=== PATIENT | female | born 1975 | race Caucasian/White ===

== ENCOUNTER 2021-04-02 05:34 | Outpatient (CLI) | payer MEDICARE, MEDICAID ==
[~2021-04-02] VITALS: Ht 162.6 cm; Wt 86.7 kg
[~2021-04-02 05:34] MED LIST: ALBU17AE23; CITA-105; DICL50TA3; DOCU-165; HYDR1CAP2; LORA1TAB PO; SUMA1TAB; TRAZ50TA67 PO; YAZ
[2021-04-02] MEDS ORDERED: FLT11013 IH (14:43)
[2021-04-02] MEDS ORDERED: UBRO100T PO (14:43)
[2021-04-02] MEDS ORDERED: EREN70AU SQ (14:43)
[2021-04-02] MEDS ORDERED: VENL225T PO (14:43)
[2021-04-02] MEDS ORDERED: ATOR10TA66 PO (14:43)
[2021-04-02] MEDS ORDERED: PROM25TA14 PO (14:43)
[2021-04-02] MEDS ORDERED: ALBU0.63 IH (14:43)
[2021-04-02] MEDS ORDERED: TRZ50T PO (14:43)
[2021-04-02] MEDS ORDERED: BUSP30TA2 PO (14:43)
[2021-04-02] MEDS ORDERED: PRAZ5CAP2 PO (14:43)
[2021-04-02] MEDS ORDERED: LISI10TA25 PO (14:43)
[2021-04-02] MEDS ORDERED: MIRT7.5T8 PO (14:43)
[2021-04-09] MEDS ORDERED: TRAM50TA3 PO ×2 (10:05→10:16)
== END 2021-04-08 09:02 | disposition home or self-care (01) ==
LOC: PREOP 05:34
PROVIDERS: ATTEND Otolaryngology Otolaryngology/Facial Plastic Surgery
DX: Z01.818 Encounter for other preprocedural examination (principal); J34.3 Hypertrophy of nasal turbinates

== ENCOUNTER 2021-04-09 07:04 | Day surgery (SDC) | payer MEDICARE, MEDICAID ==
[2021-04-09] VITALS (11 sets, daily range): BP systolic 91–117; BP diastolic 45–96
[~2021-04-09] VITALS: Ht 162.6 cm; Wt 86.7 kg
[~2021-04-09 07:04] MED LIST changes: +ALBU0.63 IH; +ATOR10TA66 PO; +BUSP30TA2 PO; +EREN70AU SQ; +FLT11013 IH; +LISI10TA25 PO; +MIRT7.5T8 PO; +PRAZ5CAP2 PO; +PROM25TA14 PO; +TRZ50T PO; +UBRO100T PO; +VENL225T PO
[2021-04-09] MEDS ORDERED: LACTATED RINGERS 1,000 ML IV PRN (07:30)
--- NOTE | 2021-04-09 07:43 | Progress Note-Pre Operative ---
Pre-Operative Progress Note H&P Reviewed The H&P was reviewed, patient examined and no changes noted. 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
[2021-04-09] MEDS ORDERED: MIDAZOLAM 2 MG/2 ML (VERSED) VIAL ONE (07:46)
[2021-04-09] MEDS ORDERED: ONDANSETRON 4 MG/2 ML (SDV) Z0FRAN ONE ×2 (07:46→09:03)
[2021-04-09] MEDS ORDERED: proPOfol 200 MG/20 ML (DIPRIVAN) VIAL IV ONE (07:46)
[2021-04-09] MEDS ORDERED: LIDOCAINE PF 2% 5 ML (XYLOCAINE) VIAL ONE (07:46)
[2021-04-09] MEDS ORDERED: ROCURONIUM 10 MG/ML 5 ML SYRINGE IV ONE (07:46)
[2021-04-09] MEDS ORDERED: fentaNYL INJ 100 MCG/2 ML AMP ONE (07:46)
[2021-04-09] MEDS ORDERED: LIDOCAINE/EPI 1%-1:100,000 (XYLOCAINE) 20ML ONE (07:48)
[2021-04-09] MEDS ORDERED: PHENYLEPHRINE 0.5% NASAL SPR (NEO-SYNEPHRINE) REG ONE (07:48)
[2021-04-09] MEDS ORDERED: NEOSTIGMINE 3 MG/3 ML VIAL ONE (08:39)
[2021-04-09] MEDS ORDERED: GLYCOPYRROLATE 0.2 MG/ML (ROBINUL) 2 ML VIAL ONE (08:39)
[2021-04-09] MEDS ORDERED: PHENYLEPHRINE 100 MCG/ML 10 ML (ANESTHESIA) SYR ONE (08:40)
[2021-04-09] MEDS ORDERED: SUGAMMADEX 500 MG/5 ML VIAL (BRIDION) IV ONE (08:44)
--- NOTE | 2021-04-09 08:47 | Progress Note-Post Operative ---
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 Specimen(s) collected/removed none RYANN RICCI MD April 09, 2021 08:47
[2021-04-09] MEDS ORDERED: D5 1/2 NS W/KCL 20 MEQ/L 1,000 ML IV SCH (09:00)
[2021-04-09] MEDS ORDERED: ACETAMINOPHEN 325 MG TABLET PO PRN (09:00)
[2021-04-09] MEDS: morphine INJ 10 MG/ML 1ML (SYR OR VIAL) ONE (09:14)
[2021-04-09] MEDS ORDERED: TRAM50TA3 PO ×2 (10:05→10:16)
--- NOTE | 2021-04-09 12:02 | Anesthesia-General Post-Op ---
General Patient Condition Mental Status/LOC: Same as Preop Cardiovascular: Satisfactory Nausea/Vomiting: Absent Respiratory: Satisfactory Pain: Controlled Complications: Absent Post Op Complications Complications None Follow Up Care/Instructions Patient Instructions None needed. Anesthesia/Patient Condition Patient Condition Patient is doing well, no complaints, stable vital signs, no apparent adverse anesthesia problems. No complications reported per nursing. FERNANDO BLACKWELL CRNA April 09, 2021 12:02
== END 2021-04-09 10:39 | disposition home or self-care (01) ==
LOC: SDC 07:04
PROVIDERS: ATTEND Otolaryngology Otolaryngology/Facial Plastic Surgery
DX: J34.3 Hypertrophy of nasal turbinates (principal); J34.2 Deviated nasal septum; R09.81 Nasal congestion; I10 Essential (primary) hypertension; J45.909 Unspecified asthma, uncomplicated; F32.9 Major depressive disorder, single episode, unspecified; F41.9 Anxiety disorder, unspecified; Z91.02 Food additives allergy status; Z88.1 Allergy status to other antibiotic agents; Z88.5 Allergy status to narcotic agent; Z87.891 Personal history of nicotine dependence; Z91.030 Bee allergy status; Z90.89 Acquired absence of other organs; Z98.890 Other specified postprocedural states
CPT/HCPCS: 87081

== ENCOUNTER 2023-04-13 12:43 | Emergency (ER) | payer MEDICARE, MEDICAID ==
[~2023-04-13 12:43] MED LIST changes: +TRAM50TA3 PO
[2023-04-13] MEDS ORDERED: ONDANSETRON 4 MG (ZOFRAN) ORAL DISSOLVE TAB PO STA (13:01)
[2023-04-13] MEDS ORDERED: ONDA8TAB13 SL (13:04)
--- NOTE | 2023-04-13 13:05 | ED GI ---
General Chief Complaint: Abdominal/GI Problems Stated Complaint: NAUS/VOMITING Source of Information: Patient Exam Limitations: No Limitations History of Present Illness Date Seen by Provider: April 13, 2023 Time Seen by Provider: 12:55 Initial Comments 47-year-old female presents to the emergency department today for nausea and vomiting. Symptoms started at 730 this morning and she has vomited 3 times. She has diffuse abdominal cramping without any focal abdominal pain. Her friend recently had food poisoning about 3 to 4 days ago and she did eat the same thing however she had not had symptoms until this morning no fevers or chills. No changes in bowel or bladder habits. 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 All other systems reviewed and negative except documented per HPI. Voice recognition software was used to help create this chart Allergies and Home Medications Allergies Coded Allergies: amoxicillin (Verified Allergy, Severe, Vomiting, 04/02/21) clavulanic acid (Verified Allergy, Severe, Vomiting, 04/02/21) topiramate (Verified Allergy, Severe, Shortness of Breath, 04/02/21) hydrocodone (Verified Allergy, Intermediate, Itching, 04/02/21) bee venom protein (honey bee) (Verified Allergy, Unknown, 04/02/21) black pepper (Verified Allergy, Unknown, 04/02/21) Patient Home Medication List Home Medication List Reviewed: Yes Albuterol Sulfate (Albuterol Sulfate) 0.63 Mg/3 Ml Vial.neb, 0.63 MG IH Q6H PRN for WHEEZING, (Reported) Entered as Reported by: ZOILA BONE on 04/02/21 144 Atorvastatin Calcium (Atorvastatin Calcium) 10 Mg Tablet, 10 MG PO DAILY, (Reported) Entered as Reported by: ZOILA BONE on 04/02/21 144 Buspirone HCl (Buspirone HCl) 30 Mg Tablet, 30 MG PO BID, (Reported) Entered as Reported by: ZOILA BONE on 04/02/21 144 Erenumab-Aooe (Aimovig Autoinjector) 70 Mg/1 Ml Auto.injct, 70 MG SQ ONCE, (Reported) Entered as Reported by: ZOILA BONE on 04/02/21 144 Fluticasone Propionate (Flovent Hfa 110 mcg) 1 Ea Aero, 1 EA IH BID, (Reported) Entered as Reported by: ZOILA BONE on 04/02/21 1443 Lisinopril (Lisinopril) 10 Mg Tablet, 10 MG PO DAILY, (Reported) Entered as Reported by: ZOILA BONE on 04/02/21 1443 Mirtazapine (Mirtazapine) 7.5 Mg Tablet, 7.5 MG PO HS, (Reported) Entered as Reported by: ZOILA BONE on 04/02/21 1443 Prazosin HCl (Prazosin HCl) 5 Mg Capsule, 5 MG PO HS, (Reported) Entered as Reported by: ZOILA BONE on 04/02/21 1443 Promethazine HCl (Promethazine Tablet) 25 Mg Tablet, 25 MG PO Q6H PRN for NAUSEA/VOMITING, (Reported) Entered as Reported by: ZOILA BONE on 04/02/21 144 Tramadol HCl (Tramadol HCl) 50 Mg Tablet, 50 MG PO TID Prescribed by: RADHA CHENEY on 04/09/21 1016 Trazodone HCl (Trazodone HCl) 50 Mg Tablet, 50 MG PO HS, (Reported) Entered as Reported by: ZOILA BONE on 04/02/21 1443 Ubrogepant (Ubrelvy) 100 Mg Tablet, 100 MG PO PRN, (Reported) Entered as Reported by: ZOILA BONE on 04/02/21 144 Venlafaxine HCl (Venlafaxine HCl ER) 225 Mg Tab.er.24, 225 MG PO DAILY, (Reported) Entered as Reported by: ZOILA BONE on 04/02/21 144 Review of Systems Review of Systems Constitutional: see HPI Past Socwpeb-Kanjzc-Hlxlkf Hx Patient Social History Tobacco Use?: No Use of E-Cig and/or Vaping dev: No Substance use?: No Alcohol Use?: No Seasonal Allergies Seasonal Allergies: Yes Past Medical History Surgeries: Yes Abdominal, Bowel Surgery, Gallbladder, Hysterectomy, Orthopedic Respiratory: Yes Asthma Currently Using CPAP: No Currently Using BIPAP: No Cardiac: Yes High Cholesterol, Hypertension Neurological: No Reproductive Disorders: No SUPERINTENDENT OPERATING History: Hysterectomy, Tubal Ligation Sexually Transmitted Disease: No Genitourinary: Yes UTI-Chronic Gastrointestinal: No Musculoskeletal: No Endocrine: No HEENT: Yes (WEARS GLASSES) Cancer: No Psychosocial: Yes Anxiety, Depression Integumentary: No Blood Disorders: No Physical Exam Vital Signs Capillary Refill : Height/Weight/BMI Height: '" Weight: lbs. oz. kg; 32.79 BMI Method: General Appearance: WD/WN, no apparent distress HEENT: normal ENT inspection Neck: non-tender, supple, normal inspection Respiratory: chest non-tender, lungs clear, normal breath sounds, no respiratory distress, no accessory muscle use Cardiovascular: regular rate, rhythm, no murmur Gastrointestinal: normal bowel sounds, non tender, soft, no organomegaly, no pulsatile mass Neurologic/Psychiatric: alert, oriented x 3 Skin: normal color, warm/dry Progress/Results/Core Measures Results/Orders My Orders Orders - FARHAN WATERS DO Ondansetron Oral Dissolve Tab (Zofran (04/13/23 13:01) Departure Communication (Admissions) Patient is hemodynamically stable, nontoxic. No evidence for any systemic infection. She has nausea and vomiting which she has frequently with her motility disease. She has vomited 3 times since 730. No clinical need for IV fluids at this time, no indication for checking of electrolytes. She be treated symptomatically and discharged home in stable condition Impression Primary Impression: Nausea and vomiting Qualified Codes: R11.2 - Nausea with vomiting, unspecified Disposition: HOME, SELF-CARE Condition: Stable Departure-Patient Inst. Referrals: DANNI SNYDER MD (PCP) Primary Care Physician Patient Instructions: Nausea and Vomiting, Adult Add. Discharge Instructions: Zofran for nausea as needed by dissolving under your tongue. Increase your fluids by taking small sips of fluids every 15 to 20 minutes. Do not over drink large volumes of fluid so not to distend your stomach and cause more vomiting. Follow-up with your primary doctor for any nonemergent needs. Return to the emergency department for any severe concerns. All discharge instructions reviewed with patient and/or family. Voiced understanding. Scripts Ondansetron (Ondansetron Odt) 8 Mg Tab.rapdis 8 MG SL q6 PRN for NAUSEA/VOMITING for 3 Days, #12 TAB Prov: FARHAN WATERS DO 04/13/23 FARHAN WATERS DO April 13, 2023 13:05
[2023-04-13 13:11] VITALS: BP 106/70
== END 2023-04-13 13:11 | disposition home or self-care (01) ==
LOC: EDUNIT# 12:43 → ER FS 12:55
DX: R11.2 Nausea with vomiting, unspecified (principal); K92.89 Other specified diseases of the digestive system; Z98.890 Other specified postprocedural states
CPT/HCPCS: 99283